=== PATIENT | male | born 1970 | race Caucasian/White ===

== ENCOUNTER 2019-05-30 01:41 | Emergency (ER) | payer BC ==
[2019-05-30] MEDS ORDERED: Ondansetron PF 4 MG/2 ML Vial ONE (01:52)
[2019-05-30] MEDS ORDERED: Morphine 4 MG/ML VIAL ONE (01:52)
[2019-05-30 02:06] LABS: #Basophils 0.1 thou/uL (0.0-0.2); #Eosinphils 0.1 thou/uL (0.0-0.7); #Lymphocytes 1.4 thou/uL (1.20-3.40); #Monocytes 0.5 thou/uL (0.11-0.59); #Neutrophils 4.7 thou/uL (1.40-6.50); %Basophils 0.8 % (0.0-1.0); %Eosinophils 0.9 % (0.0-10.0); %Monocytes 7.5 % (0.0-10.0); %Neutrophils 69.7 % (42.0-75.0); Hemoglobin 16.4 g/dL (14.0-18.0); Mean Corpuscular Hemoglobin 30.6 pg (27.0-31.0); Mean Corpuscular Volume 90.1 fL (78.0-98.0); Mean Platelet Volume 7.1 fL (7.4-10.4); Platelet Count 241 thou/uL (130-400); RBC Distribution Width 12.5 % (11.5-14.5); Red Blood Cell (RBC) Count 5.35 mill/uL (4.70-6.10); White Blood Cell (WBC) Count 6.7 thou/uL (4.8-10.8)
[2019-05-30 02:23] LABS: ALT (SGPT) 8 U/L (8-55); AST (SGOT) 21 U/L (5-34); Albumin 4.5 g/dL (3.5-5.0); Alkaline Phosphatase 82 U/L (40-110); Anion Gap 15 mmol/L (10-20); BUN (Urea Nitrogen) 19 mg/dL (8.9-20.6); Bilirubin, Total 0.6 mg/dL (0.2-1.2); Calc. Creatinine Clearance 0 mL/min (70-130); Calcium 9.9 mg/dL (7.8-10.44); Carbon Dioxide 23 mmol/L (22-29); Chloride 103 mmol/L (98-107); Estimated GFR-MDRD 72; Globulin 3.2 g/dL (2.4-3.5); Glucose 93 mg/dL (70-105); Lipase 48 U/L (8-78); Potassium 4.1 mmol/L (3.5-5.1); Protein, Total 7.7 g/dL (6.0-8.3); Sodium 137 mmol/L (136-145)
[2019-05-30 03:09] LABS: Bacteria/HPF None Seen HPF (None Seen); Bilirubin Negative (Negative); Blood, Urine 3+ (Negative); Clarity Extra Turbid (Clear); Glucose, Urine (Dipstick) Normal (Negative); Leukocyte Negative Leu/uL (Negative); Nitrite Negative (Negative); Protein, Urine (Dipstick) 20 mg/dL (Neg-Trace); RBC/HPF Greater than 50 HPF (0-3); Squamous Epithelial None Seen HPF (0-3); Urobilinogen Normal mg/dL (Less than 2); WBC/HPF 21-50 HPF (0-3)
--- NOTE | 2019-05-30 07:43 | CT ---
PRELIMINARY REPORT/[facility]/EMERGENCY AFTER HOURS PROCEDURE: PROCEDURE: CT Scan Abdomen and Pelvis without IV Contrast Material. HISTORY: LEFT flank pain. TECHNIQUE: Axial images were performed with multiplanar reconstructions without IV contrast material. The patient was not given oral contrast material. COMPARISON: None . FINDINGS: Clear lung bases. Liver, spleen, adrenals, pancreas show no significant abnormality. 2 mm proximal LEFT ureter stone with mild hydroureteronephrosis. No other urinary track abnormality. Normal biliary tract. No abdominal ascites or pneumoperitoneum. Trace atherosclerosis aorta. No lymphadenopathy. No bowel obstruction or inflammation and normal appendix. Gastric sleeve. Pelvis shows no masses or free fluid in normal urinary bladder. No acute bony abnormality. IMPRESSION: Proximal LEFT ureterolithiasis with mild hydroureteronephrosis. ELECTRONICALLY SIGNED BY: Juan Alberto Fajardo MD May 30, 2019 2:34:31 AM CDT This report is intended for review by the ordering physician only, in accordance of law. If you recei ve this report in error, please call [facility] at [phone]. FINAL REPORT EMERGENCY AFTER HOURS CT ABDOMEN AND PELVIS WITHOUT CONTRAST: FINDINGS/IMPRESSION: I agree with the findings and impression given in the preliminary report per [facility] physici an. There is a small left proximal ureteral calcification with mild left-sided hydronephrosis.
== END 2019-05-30 03:44 | disposition home or self-care (01) ==
LOC: ERS 01:41
DX: N13.2 Hydronephrosis with renal and ureteral calculous obstruction (principal); F17.210 Nicotine dependence, cigarettes, uncomplicated; Z71.6 Tobacco abuse counseling
CPT/HCPCS: 74176; 80053; 81003; 81015; 83690; 85025; 87086; 96361; 96374; 96375; 99406; J2270; J2405

== ENCOUNTER 2019-05-31 09:53 | Emergency (ER) | payer BC ==
[2019-05-31] MEDS ORDERED: Ondansetron PF 4 MG/2 ML Vial ONE (10:27)
[2019-05-31] MEDS ORDERED: Fentanyl 100 MCG/2 ML VIAL ONE (10:27)
[2019-05-31] MEDS ORDERED: Ketorolac Tromethamine 30 MG/ML VIAL ONE (10:27)
[2019-05-31 10:29] LABS: #Monocytes 0.6 thou/uL (0.11-0.59); %Basophils 0.4 % (0.0-1.0); %Eosinophils 0.3 % (0.0-10.0); %Lymphocytes 10.2 % (21.0-51.0); %Monocytes 5.8 % (0.0-10.0); %Neutrophils 83.4 % (42.0-75.0); Hemoglobin 17.8 g/dL (14.0-18.0); Mean Corpuscular Hemoglobin 30.5 pg (27.0-31.0); Mean Corpuscular Volume 89.8 fL (78.0-98.0); Mean Platelet Volume 6.8 fL (7.4-10.4); Platelet Count 235 thou/uL (130-400); RBC Distribution Width 12.4 % (11.5-14.5); Red Blood Cell (RBC) Count 5.84 mill/uL (4.70-6.10); White Blood Cell (WBC) Count 9.6 thou/uL (4.8-10.8)
[2019-05-31 10:42] LABS: ALT (SGPT) 8 U/L (8-55); AST (SGOT) 21 U/L (5-34); Albumin 4.7 g/dL (3.5-5.0); Alkaline Phosphatase 92 U/L (40-110); Anion Gap 16 mmol/L (10-20); BUN (Urea Nitrogen) 9 mg/dL (8.9-20.6); Bilirubin, Total 1.5 mg/dL (0.2-1.2); Calc. Creatinine Clearance 0 mL/min (70-130); Calcium 9.9 mg/dL (7.8-10.44); Carbon Dioxide 24 mmol/L (22-29); Chloride 97 mmol/L (98-107); Estimated GFR-MDRD 54; Globulin 3.7 g/dL (2.4-3.5); Glucose 101 mg/dL (70-105); Lipase 20 U/L (8-78); Potassium 4.2 mmol/L (3.5-5.1); Protein, Total 8.4 g/dL (6.0-8.3); Sodium 133 mmol/L (136-145)
--- NOTE | 2019-05-31 11:04 | RAD ---
KUB: HISTORY: Left ureteral calculus. COMPARISON: CT examination done yesterday. FINDINGS: There is some mild gaseous distention of the abdomen. Air in both small and large bowel. Renal outlin es are obscured by the gas. The left ureteral calculus which was seen at approximately L4 on the prio r examination is not seen at this level. It is probably the calcification seen more distally in the l eft side of the pelvis. This area is marked with an arrow. There is a second calcification distal to this, but this appears to have been present on the prior exam and is felt to represent a phlebolith. IMPRESSION: Probable distal left ureteral calculus measuring 4.0 mm. POS: [facility]
== END 2019-05-31 11:43 | disposition home or self-care (01) ==
LOC: ERS 09:53
DX: N21.1 Calculus in urethra (principal); F17.210 Nicotine dependence, cigarettes, uncomplicated; Z79.899 Other long term (current) drug therapy
CPT/HCPCS: 74018; 80053; 83690; 85025; 96361; 96374; 96375; J1885; J2405; J3010